=== PATIENT | male | born 1955 | race Caucasian/White ===

== ENCOUNTER 2018-12-14 16:33 | Inpatient (IN) | payer OTHER ==
[2018-12-14 18:29] LABS: #Eosinphils 0.1 thou/uL (0.0-0.7); #Lymphocytes 0.9 thou/uL (1.20-3.40); #Monocytes 0.3 thou/uL (0.11-0.59); %Basophils 0.6 % (0.0-1.0); %Eosinophils 3.4 % (0.0-10.0); %Lymphocytes 20.3 % (21.0-51.0); %Monocytes 7.7 % (0.0-10.0); Hemoglobin 11.9 g/dL (14.0-18.0); Mean Corpuscular HGB CONC 33.7 g/dL (32.0-36.0); Mean Corpuscular Hemoglobin 32.1 pg (27.0-31.0); Mean Corpuscular Volume 95.2 fL (78.0-98.0); Mean Platelet Volume 7.7 fL (7.4-10.4); Platelet Count 121 thou/uL (130-400); RBC Distribution Width 12.9 % (11.5-14.5); Red Blood Cell (RBC) Count 3.72 mill/uL (4.70-6.10); White Blood Cell (WBC) Count 4.4 thou/uL (4.8-10.8)
[2018-12-14 18:51] LABS: ALT (SGPT) 21 U/L (8-55); AST (SGOT) 25 U/L (5-34); Alkaline Phosphatase 63 U/L (40-150); Anion Gap 13 mmol/L (10-20); BUN (Urea Nitrogen) 17 mg/dL (8.4-25.7); Bilirubin, Total 0.7 mg/dL (0.2-1.2); Calc. Creatinine Clearance 0 mL/min (70-130); Calcium 9.3 mg/dL (7.8-10.44); Carbon Dioxide 25 mmol/L (23-31); Chloride 105 mmol/L (98-107); Estimated GFR-MDRD 67; Globulin 3.1 g/dL (2.4-3.5); Glucose 95 mg/dL (80-115); Potassium 3.8 mmol/L (3.5-5.1); Protein, Total 7.1 g/dL (5.8-8.1); Sodium 139 mmol/L (136-145)
[2018-12-14] MEDS ORDERED: Morphine 4 MG/ML VIAL ONE (20:27)
[2018-12-14] MEDS ORDERED: Clindamycin/D5W 900 mg/50 ml Premix Bag ONE (20:27)
[2018-12-14] MEDS ORDERED: Piperacillin/Tazobactam 4.5 GM VIAL ONE (20:27)
[2018-12-14] MEDS ORDERED: Bisacodyl 5 MG TAB PO PRN (20:29)
[2018-12-14] MEDS ORDERED: Acetaminophen 325 MG TAB PO PRN (20:29)
[2018-12-14] MEDS ORDERED: Senokot S 8.6-50 MG TAB PO PRN (20:29)
[2018-12-14] MEDS ORDERED: cefTRIAXone\\ROCEPHIN 1 GM in Sodium Chloride 0.9% 100 ML IVPB SCH (21:00)
[2018-12-14] MEDS ORDERED: Vancomycin HCl 1.5 GM in Sodium Chloride 0.9% 250 ML 300 ML IVPB ONE (21:15)
[2018-12-14] MEDS: Sodium Chloride 0.9% 1,000 ML IV SCH (21:34)
[2018-12-14] MEDS: cefTRIAXone\\ROCEPHIN 1 GM in Sodium Chloride 0.9% 100 ML IVPB SCH (23:09)
--- NOTE | 2018-12-15 02:29 | HP ---
CHIEF COMPLAINT: Right arm cellulitis. HISTORY OF PRESENT ILLNESS: The patient is a 63-year-old male with past medical history of hypertension, depression, also panic attacks, and has some history of frequent falls, has history of degeneration of his brain, who comes into the hospital after a fall. The patient's caregiver at the bedside, who is his ex- stated that the patient had a mechanical fall. On the , he came into the hospital, got x-ray of his right elbow, which indicated just information. He was put on 2 antibiotics and discharged to home. The patient's ex- also stated that he has right deltoid injury and was getting physical therapy prior to this fall. The patient is wheelchair bound and he is unable to walk due to frequent falls. According to her, he really does not have any diagnosis in terms of what is wrong with him neurologically. The patient denies any fevers or chills; however, the caregiver noticed that the patient's right arm started having more erythema and swelling, so she brought him to the hospital for further evaluation. PAST MEDICAL HISTORY: 1. Hypertension. 2. Depression. 3. Panic attacks. 4. 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 PAST SURGICAL HISTORY: He has had arm surgery in the past. FAMILY HISTORY: Mother, . Father, . He has only 1 brother, who is living out of 7 brothers and sisters. SOCIAL HISTORY: He denies any tobacco use. Denies any smoking, alcohol use, or drug use. He lives with his ex-, who is his catcher plug. He is currently a full code. REVIEW OF SYSTEMS: Unable to obtain. The patient is unable to express anything except for some pain to his right elbow. MEDICATIONS: This is on the list, the patient takes; 1. Aspirin 81 mg daily. 2. Zoloft 100 mg daily. 3. Valsartan 160 mg daily. 4. Valium 10 mg daily. 5. Hydrochlorothiazide 12.5 mg daily. ALLERGIES: THE PATIENT HAS NO KNOWN DRUG ALLERGIES. PHYSICAL EXAMINATION: VITAL SIGNS: As of the following; temperature of 98.1, respirations 16, saturation 97% on room air, blood pressure 132/78, and pulse of 81. GENERAL: He is awake, alert, and oriented x3. Does not appear in any distress. HEENT: Normocephalic and atraumatic. The patient has hard time expressing himself. He stutters and is unable to describe things very clearly. Pupils are equal and reactive to light. CV: S1 and S2 present. No murmurs, rubs, or gallops. LUNGS: Clear to auscultation. No rhonchi or wheezes noted. ABDOMEN: Soft, nontender. Bowel sounds are present x2. EXTREMITIES: He has no edema. Pedal pulses are present x2. NEUROVASCULAR: No focal deficits noted. The patient is unable to express himself. He gets very frustrated and he uses one word to describe things. The patient's caregiver at the bedside states that this is at his baseline. SKIN: He does have significant erythema to his right upper extremity all the way under the armpit. He has some mild seeping of clear fluid that is noted. Elbow also appears to have some erythema, but there is no pain upon palpation. As I mentioned, some erythema noted on his right arm. MUSCULOSKELETAL: The patient does not complain of any pain anywhere else. LABORATORY DATA: WBCs of 4.4, hemoglobin of 11.9, hematocrit of 35.4, platelets of 121. Chemistry; sodium of 139, potassium of 3.9, BUN of 17, creatinine of 1.11. IMAGING STUDIES: As I mentioned, the patient had an x-ray of the elbow on the , which indicated prominent soft tissue swelling without definite acute bony findings. ASSESSMENT AND PLAN: The patient is a very pleasant 63-year-old male, who comes to the hospital with complaints of right arm worsening pain and cellulitis. 1. Cellulitis. The patient failed outpatient therapy. We will put the patient on ceftriaxone and vancomycin. For now, I will get a Doppler of this right upper extremity to rule out any deep venous thrombosis. We will start the patient on some gentle hydration and continue to monitor. 2. Anxiety and depression. We will continue his home medications. 3. Deep venous thrombosis prophylaxis. We will put the patient on heparin subcu. Job ID: [id number]
[2018-12-15 05:50] LABS: #Eosinphils 0.1 thou/uL (0.0-0.7); #Lymphocytes 0.6 thou/uL (1.20-3.40); #Monocytes 0.3 thou/uL (0.11-0.59); #Neutrophils 2.4 thou/uL (1.40-6.50); %Basophils 0.5 % (0.0-1.0); %Eosinophils 3.6 % (0.0-10.0); %Monocytes 9.3 % (0.0-10.0); %Neutrophils 69.6 % (42.0-75.0); Hemoglobin 10.8 g/dL (14.0-18.0); Mean Corpuscular HGB CONC 33.3 g/dL (32.0-36.0); Mean Corpuscular Hemoglobin 31.7 pg (27.0-31.0); Mean Corpuscular Volume 95.2 fL (78.0-98.0); Mean Platelet Volume 7.3 fL (7.4-10.4); Platelet Count 103 thou/uL (130-400); RBC Distribution Width 12.8 % (11.5-14.5); Red Blood Cell (RBC) Count 3.42 mill/uL (4.70-6.10); White Blood Cell (WBC) Count 3.4 thou/uL (4.8-10.8)
[2018-12-15 06:01] LABS: Anion Gap 12 mmol/L (10-20); BUN (Urea Nitrogen) 16 mg/dL (8.4-25.7); Calc. Creatinine Clearance 117 mL/min (70-130); Calcium 8.8 mg/dL (7.8-10.44); Carbon Dioxide 24 mmol/L (23-31); Chloride 104 mmol/L (98-107); Estimated GFR-MDRD 80; Glucose 96 mg/dL (80-115); Potassium 3.4 mmol/L (3.5-5.1); Sodium 137 mmol/L (136-145)
[2018-12-15] MEDS ORDERED: Prevnar 13-Val Conj/PF 0.5 ML SYRINGE IM ONE (09:00)
--- NOTE | 2018-12-15 09:08 | ULT ---
ULTRASOUND DOPPLER DUPLEX VENOUS RIGHT UPPER EXTREMITY: DATE: 12/15/2018. TIME: 8:20 a.m. HISTORY: A 63-year-old male with right upper extremity swelling. TECHNIQUE: Chamorro scale, color flow, and spectral analysis, of major right upper extremity. Compression and relea se applied to all interrogated veins, except for the subclavian. FINDINGS: There is soft tissue edema in the arm. There is no thrombosis of the right internal jugular, subclav rusty, axillary, basilic, cephalic, brachial, radial, and ulnar veins. IMPRESSION: 1. No thrombosis of right upper extremity veins. 2. Soft tissue edema in the right arm. POS: [facility]
[2018-12-15] MEDS: Enoxaparin Sodium 40 MG/0.4 ML SYRINGE SC SCH (09:37)
[2018-12-15] MEDS: Vancomycin HCl 1.25 GM in Sodium Chloride 0.9% 250 ML 250 ML IVPB SCH ×2 (09:37→21:35)
[2018-12-15] MEDS: HYDROcodone/Acetaminophen 5/325 mg Tablet PO PRN ×2 (10:09→21:35)
[2018-12-15] MEDS ORDERED: Potassium Chloride 20 MEQ TAB PO SCH (10:15)
[2018-12-15] MEDS: Sodium Chloride 0.9% 1,000 ML IV SCH ×2 (11:12→21:35)
--- NOTE | 2018-12-15 17:13 | PDOC.PN ---
- Subjective Encounter Start Date: 12/15/18 Encounter Start Time: 10:30 Subjective: pt up in bed feels frustrated that he cannot express his concerns - Objective Resuscitation Status - Order Detail: 12/14/18 20:29 Resuscitation Status Routine Resuscitation Status: FULL: Full Resuscitation Vital Signs & Weight: Vital Signs (12 hours) Temp Pulse Resp BP Pulse Ox 12/15/18 16:00 98.3 F 77 12 107/56 L 12/15/18 11:00 97.5 F L 76 18 129/63 12/15/18 07:47 97.4 F L 92 20 133/71 96 Weight Weight 227 lb 1.218 oz I&O: 12/14/18 12/15/18 12/16/18 06:59 06:59 06:59 Intake Total 185 Output Total 100 360 Balance 85 -360 Result Diagrams: 12/15/18 05:21 12/15/18 05:21 Phys Exam - Physical Examination Neck: no nodes, no JVD, supple, full ROM Respiratory: no wheezing, no rales, no rhonchi, wheezing present, clear to auscultation bilateral Cardiovascular: RRR, no significant murmur, no rub, gallop, irregular right elbow erythema has improved Dx/Plan (1) Cellulitis of elbow Code(s): L03.119 - CELLULITIS OF UNSPECIFIED PART OF LIMB Status: Acute (2) Neurological disorder Code(s): G98.8 - OTHER DISORDERS OF NERVOUS SYSTEM Status: Acute (3) Hypokalemia Code(s): E87.6 - HYPOKALEMIA Status: Acute - Plan will replace K -: will continue abx for now -: right arm ultrasound negative for dvt * . Review of Systems - Review of Systems Other: unable to obtain - Medications/Allergies Allergies/Adverse Reactions: Allergies Allergy/AdvReac Type Severity Reaction Status Date / Time No Known Allergies Allergy Unverified 12/28/15 17:32 Medications: Current Medications Acetaminophen (Tylenol) 650 mg PO Q8H PRN PRN Reason: Headache/Fever/Mild Pain (1-3) Hydrocodone Bitart/Acetaminophen ([place] 5/325) 1 tab PO Q4H PRN PRN Reason: Moderate Pain (4-6) Last Admin: 12/15/18 10:09 Dose: 1 tab Aspirin (Aspirin Chewable) 81 mg PO DAILY [facility] Bisacodyl (Dulcolax) 10 mg PO DAILYPRN PRN PRN Reason: Constipation Diazepam (Valium) 10 mg PO QID PRN PRN Reason: Anxiety Enoxaparin Sodium (Lovenox) 40 mg SC 0900 [facility] Last Admin: 12/15/18 09:37 Dose: 40 mg Hydrochlorothiazide (Hydrochlorothiazide) 12.5 mg PO DAILY COUNT [facility]CLUDES THE [facility] Sodium Chloride (Normal Saline 0.9%) 1,000 mls @ 75 mls/hr IV .[id number] COUNT INCLUDES THE [facility] Last Admin: 12/15/18 11:12 Dose: 1,000 mls Vancomycin HCl 1.25 gm/ Sodium (Chloride) 250 mls @ 166.667 mls/hr IVPB Q12HR COUNT INCLUDES THE [facility] Last Admin: 12/15/18 09:37 Dose: 250 mls Ceftriaxone Sodium 1 gm/ (Sodium Chloride) 100 mls @ 200 mls/hr IVPB Q24HR@ 2300 [facility]CLUD[facility] Last Admin: 12/14/18 23:09 Dose: 100 mls Miscellaneous Medication (Pharmacy To Dose) 1 each IVPB PRN PRN PRN Reason: Pharmacy to dose Senna/Docusate Sodium (Senokot S) 2 tab PO BID PRN PRN Reason: Constipation Sertraline HCl (Zoloft) 150 mg PO DAILY [facility] Last Admin: 12/15/18 09:37 Dose: 150 mg Sodium Chloride (Flush - Normal Saline) 10 ml IVF Q12HR COUNT [facility]CLUDES THE [facility] Last Admin: 12/15/18 09:38 Dose: Not Given Sodium Chloride (Flush - Normal Saline) 10 ml IVF PRN PRN PRN Reason: Saline Flush Last Admin: 12/14/18 21:40 Dose: 10 ml Venlafaxine HCl (Effexor Xr) 75 mg PO DAILY [facility]
[2018-12-15] MEDS: cefTRIAXone\\ROCEPHIN 1 GM in Sodium Chloride 0.9% 100 ML IVPB SCH (23:27)
[2018-12-16] MEDS: Vancomycin HCl 1.25 GM in Sodium Chloride 0.9% 250 ML 250 ML IVPB SCH ×2 (08:56→21:20)
[2018-12-16] MEDS: Venlafaxine HCl XR 75 MG CAP PO SCH (09:00)
[2018-12-16] MEDS: Hydrochlorothiazide 25 MG TAB PO SCH (09:01)
[2018-12-16] MEDS: Aspirin Chewable 81 MG TAB PO SCH (09:01)
[2018-12-16] MEDS: Enoxaparin Sodium 40 MG/0.4 ML SYRINGE SC SCH (09:02)
[2018-12-16] MEDS: HYDROcodone/Acetaminophen 5/325 mg Tablet PO PRN ×3 (10:49→20:28)
--- NOTE | 2018-12-16 12:40 | PDOC.PN ---
- Subjective Encounter Start Date: 12/16/18 Encounter Start Time: 11:30 Subjective: says he feels better -: right UE still hurts not as much as before - Objective Resuscitation Status - Order Detail: 12/14/18 20:29 Resuscitation Status Routine Resuscitation Status: FULL: Full Resuscitation MAR Reviewed: Yes Vital Signs & Weight: Vital Signs (12 hours) Temp Pulse Resp BP Pulse Ox 12/16/18 12:23 98.1 F 67 20 124/58 L 95 12/16/18 08:24 98 F 81 28 H 127/59 L 98 12/16/18 04:37 98.0 F 80 16 122/65 97 Weight Weight 227 lb 1.218 oz I&O: 12/15/18 12/16/18 12/17/18 06:59 06:59 06:59 Intake Total 185 1277 Output Total 100 560 250 Balance 85 717 -250 Result Diagrams: 12/15/18 05:21 12/15/18 05:21 Phys Exam - Physical Examination HEENT: PERRLA, sclera anicteric Neck: no JVD, supple Respiratory: no wheezing, no rales Cardiovascular: RRR, no significant murmur Gastrointestinal: soft, non-tender, positive bowel sounds Musculoskeletal: pulses present right UE is edematous, erythema+, pulses + Neurological: non-focal, moves all 4 limbs Psychiatric: A&O x 3 Dx/Plan (1) Cellulitis of right upper extremity Code(s): L03.113 - CELLULITIS OF RIGHT UPPER LIMB Status: Acute (2) Depression Code(s): F32.9 - MAJOR DEPRESSIVE DISORDER, SINGLE EPISODE, UNSPECIFIED Status : Chronic Qualifiers: Depression Type: major depressive disorder Active/Remission status: in full remission (3) poor functional status Status: Chronic Comment: wheel chair bound from 1 year per ex. 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 - Plan is on vanc and ceftriaxone -: MRI UE to r/o muscle/tendon rupture or abscess -: Had prior cellulitis in 2016 in the same arm -: underlying deg neurological disease (no family h/o MS or Alix Gehrig's) -: One brother is recently diagnosed with Parkinson's * . Has not seen in a long time. Will get ID consult, ortho based on MRI results He apparently had Biceps tear 2 months back and was getting PT ( is his PCP). Review of Systems - Medications/Allergies Allergies/Adverse Reactions: Allergies Allergy/AdvReac Type Severity Reaction Status Date / Time No Known Allergies Allergy Unverified 12/28/15 17:32 Medications: Current Medications Acetaminophen (Tylenol) 650 mg PO Q8H PRN PRN Reason: Headache/Fever/Mild Pain (1-3) Hydrocodone Bitart/Acetaminophen ([place] 5/325) 1 tab PO Q4H PRN PRN Reason: Moderate Pain (4-6) Last Admin: 12/16/18 10:49 Dose: 1 tab Aspirin (Aspirin Chewable) 81 mg PO DAILY [facility] Last Admin: 12/16/18 09:01 Dose: 81 mg Bisacodyl (Dulcolax) 10 mg PO DAILYPRN PRN PRN Reason: Constipation Diazepam (Valium) 10 mg PO QID PRN PRN Reason: Anxiety Enoxaparin Sodium (Lovenox) 40 mg SC 0900 [facility] Last Admin: 12/16/18 09:02 Dose: 40 mg Hydrochlorothiazide (Hydrochlorothiazide) 12.5 mg PO DAILY [facility] Last Admin: 12/16/18 09:01 Dose: 12.5 mg Sodium Chloride (Normal Saline 0.9%) 1,000 mls @ 75 mls/hr IV .[id number] [facility] Last Admin: 12/15/18 21:35 Dose: 1,000 mls Vancomycin HCl 1.25 gm/ Sodium (Chloride) 250 mls @ 166.667 mls/hr IVPB Q12HR [facility] Last Admin: 12/16/18 08:56 Dose: 250 mls Ceftriaxone Sodium 1 gm/ (Sodium Chloride) 100 mls @ 200 mls/hr IVPB Q24HR@ 2300 [facility] Last Admin: 12/15/18 23:27 Dose: 100 mls Miscellaneous Medication (Pharmacy To Dose) 1 each IVPB PRN PRN PRN Reason: Pharmacy to dose Senna/Docusate Sodium (Senokot S) 2 tab PO BID PRN PRN Reason: Constipation Sertraline HCl (Zoloft) 150 mg PO DAILY [facility] Last Admin: 12/16/18 09:01 Dose: 150 mg Sodium Chloride (Flush - Normal Saline) 10 ml IVF Q12HR [facility] Last Admin: 12/15/18 21:35 Dose: 10 ml Sodium Chloride (Flush - Normal Saline) 10 ml IVF PRN PRN PRN Reason: Saline Flush Last Admin: 12/14/18 21:40 Dose: 10 ml Venlafaxine HCl (Effexor Xr) 75 mg PO DAILY [facility] Last Admin: 12/16/18 09:00 Dose: 75 mg
[2018-12-16] MEDS: Sodium Chloride 0.9% 1,000 ML IV SCH (13:18)
[2018-12-16 20:43] LABS: Vancomycin, Trough 15.9 ug/mL
--- NOTE | 2018-12-16 22:15 | CON ---
DATE OF CONSULTATION: 12/16/2018 REASON FOR CONSULTATION: Right arm inflammatory process. HISTORY OF PRESENT ILLNESS: A 63-year-old who has a history of hypertension, depression, panic attacks, polysubstance abuse and alcoholism in the past and some neurological disorder, chronic, who has frequent falls and had another mechanical fall and apparently hit his right elbow, had some x-rays taken, given antimicrobials and discharged home, and he was readmitted because of persistence of inflammatory changes, right upper extremity and initial findings included temperature 98.1, respirations 16, O2 saturation 97%, blood pressure 132/78, pulse 81. The extremities showed swelling of the right upper extremity. White cell count 4.4, hemoglobin 11.9, platelets 121,000, creatinine 1.1. The patient had an x-ray of the elbow, which showed soft tissue swelling. Currently, Mr. Higuera is awake. He has quite a bit of perseverance is in his speech, a lot of difficulty interviewing him because of that. He denied any headaches. No respiratory symptoms. No abdominal pain. Not much pain in the right upper extremity any longer. PAST MEDICAL HISTORY: Alcoholism, polysubstance use including intravenous. Hepatitis C, treated successfully reportedly. Recurrent falls. Neurological disorder, chronic, with mobility impairment, which left him wheelchair bound. FAMILY HISTORY: Noncontributory. SOCIAL HISTORY: Lives in [place] with his ex-, who is his dermatologist. Former smoker, used to drink heavily. CURRENT MEDS: Ceftriaxone, diazepam, enoxaparin, vancomycin, sertraline. PHYSICAL EXAMINATION: VITAL SIGNS: Temperature max 98.3, blood pressure 120/50, pulse 67, respirations 20, O2 saturation 95%. SKIN: Mild erythema, right upper extremity, centered around the right olecranon area. No lymphadenopathy. Numerous scars from prior damage in self excoriation in the upper extremities. The patient is voiding spontaneously in the urinal. HEENT: Ocular movements conjugate. Oral cavity with still few teeth in place with marked decay. Moist mucosa. NECK: Supple. LUNGS: Symmetric air entry. HEART: S1, S2. Regular rate. No S3 or S4. No wheezing. ABDOMEN: Soft, not distended or tender. No ascites. No bladder distention. EXTREMITIES: The patient has diffuse stiffness. He is able to move all 4 extremities. The right elbow has a boggy and swollen olecranon area. Pulses 1+ in dorsalis pedis. After informed consent, we proceeded to clean the area in the right olecranon region with Betadine and alcohol and performed an aspirate from the olecranon bursa. Less than 1 mL of serosanguineous fluid was obtained and submitted for cultures. Repeat white cell count 3.4, hemoglobin 10.8. Creatinine normal. ASSESSMENT: Fall with bursitis, right olecranon area, either traumatic or superimposed infection. PLAN: Await for the cultures. If negative, discontinue antimicrobial therapy. The patient had a duplex ultrasound of the extremity, which did not show any evidence of thrombosis. Job ID: [id number]
[2018-12-16] MEDS: cefTRIAXone\\ROCEPHIN 1 GM in Sodium Chloride 0.9% 100 ML IVPB SCH (23:16)
[2018-12-17] MEDS: Aspirin Chewable 81 MG TAB PO SCH (08:06)
[2018-12-17] MEDS: Hydrochlorothiazide 25 MG TAB PO SCH (08:06)
[2018-12-17] MEDS: HYDROcodone/Acetaminophen 5/325 mg Tablet PO PRN ×3 (08:07→17:12)
[2018-12-17] MEDS: Enoxaparin Sodium 40 MG/0.4 ML SYRINGE SC SCH (08:07)
--- NOTE | 2018-12-17 09:07 | OP ---
DATE OF PROCEDURE: 12/16/2018 PROCEDURE: Right olecranon bursa aspirate. DESCRIPTION OF PROCEDURE: After informed consent, the patient had the area of the olecranon bursa skin cleaned with Betadine and alcohol. Using a 21-gauge needle, less than 1 mL of serosanguineous fluid aspirated from the bursa. This was submitted for bacterial cultures. No complications noted from the procedure. Job ID: [id number]
[2018-12-17] MEDS: Vancomycin HCl 1.25 GM in Sodium Chloride 0.9% 250 ML 250 ML IVPB SCH ×2 (10:45→22:05)
[2018-12-17] MEDS: Venlafaxine HCl XR 75 MG CAP PO SCH (10:46)
--- NOTE | 2018-12-17 11:47 | MRI ---
MRI OF THE RIGHT UPPER EXTREMITY WITH AND WITHOUT CONTRAST: INDICATION: Concern for soft tissue infection or muscle and tendon tear. TECHNIQUE: Multiplanar, multisequence MR images were obtained of the right upper extremity with and without cont rast utilizing 20 cc of MultiHance. Comparisons are made with the right elbow radiograph dated 2018. FINDINGS: Motion artifact heavily degrades image detail. The biceps, brachial and triceps insertions are normal appearing. The common extensor and common fle xor origins are normal appearing. There is a peripherally enhancing fluid collection within the melita on of the olecranon bursa measuring 11.2 x 5.2 cm, suspicious for an infectious olecranon bursitis. There is extensive edema with enhancement within the subcutaneous tissues surrounding the right arm a nd right forearm as well as within the posterior elbow suspicious for cellulitis. No ricarda joint eff usion is evident. No bone marrow signal abnormality is evident to suggest the presence of osteomyeli tis. IMPRESSION: Findings suspicious for infectious olecranon bursitis with associated right upper extremity celluliti s. POS: [facility]
--- NOTE | 2018-12-17 12:00 | PDOC.PN ---
- Subjective Encounter Start Date: 12/17/18 Encounter Start Time: 11:00 Subjective: no new complaints -: at bedside - Objective Resuscitation Status - Order Detail: 12/14/18 20:29 Resuscitation Status Routine Resuscitation Status: FULL: Full Resuscitation MAR Reviewed: Yes Vital Signs & Weight: Vital Signs (12 hours) Temp Pulse Resp BP Pulse Ox 12/17/18 11:39 97.6 F 88 20 135/75 12/17/18 08:00 97.6 F 62 20 132/67 96 12/17/18 05:20 97.5 F L 81 16 137/73 96 12/17/18 00:25 98.0 F 65 16 130/64 96 Weight Weight 227 lb 1.218 oz I&O: 12/16/18 12/17/18 12/18/18 06:59 06:59 06:59 Intake Total 1277 Output Total 560 250 Balance 717 -250 Result Diagrams: 12/15/18 05:21 12/15/18 05:21 Phys Exam - Physical Examination HEENT: PERRLA, moist MMs Neck: no JVD, supple Respiratory: no wheezing, no rales Cardiovascular: RRR, no significant murmur Gastrointestinal: soft, no distention, positive bowel sounds right elbow and forearm edema and erythema++ Neurological: non-focal, moves all 4 limbs Dx/Plan (1) Cellulitis of right upper extremity Code(s): L03.113 - CELLULITIS OF RIGHT UPPER LIMB Status: Acute Comment: plus olecranon bursitis with sec infection (2) Depression Code(s): F32.9 - MAJOR DEPRESSIVE DISORDER, SINGLE EPISODE, UNSPECIFIED Status : Chronic Qualifiers: Depression Type: major depressive disorder Active/Remission status: in full remission (3) poor functional status Status: Chronic Comment: wheel chair bound from 1 year per ex. 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 - Plan d/w , will evaluate patient, MRI results noted -: has large fluid collection in bursa 11x5cm -: is on vanc and ceftriaxone -: cultures may not grow, was on antibiotics -: continue asp, hctz and venlafaxine * . Review of Systems - Medications/Allergies Allergies/Adverse Reactions: Allergies Allergy/AdvReac Type Severity Reaction Status Date / Time No Known Allergies Allergy Unverified 12/28/15 17:32 Medications: Current Medications Acetaminophen (Tylenol) 650 mg PO Q8H PRN PRN Reason: Headache/Fever/Mild Pain (1-3) Hydrocodone Bitart/Acetaminophen ([place] 5/325) 1 tab PO Q4H PRN PRN Reason: Moderate Pain (4-6) Last Admin: 12/17/18 08:07 Dose: 1 tab Aspirin (Aspirin Chewable) 81 mg PO DAILY [facility] Last Admin: 12/17/18 08:06 Dose: 81 mg Bisacodyl (Dulcolax) 10 mg PO DAILYPRN PRN PRN Reason: Constipation Diazepam (Valium) 10 mg PO QID PRN PRN Reason: Anxiety Enoxaparin Sodium (Lovenox) 40 mg SC 0900 [facility] Last Admin: 12/17/18 08:07 Dose: 40 mg Hydrochlorothiazide (Hydrochlorothiazide) 12.5 mg PO DAILY [facility] Last Admin: 12/17/18 08:06 Dose: 12.5 mg Vancomycin HCl 1.25 gm/ Sodium (Chloride) 250 mls @ 166.667 mls/hr IVPB Q12HR [facility] Last Admin: 12/17/18 10:45 Dose: 250 mls Ceftriaxone Sodium 1 gm/ (Sodium Chloride) 100 mls @ 200 mls/hr IVPB Q24HR@ 2300 [facility] Last Admin: 12/16/18 23:16 Dose: 100 mls Miscellaneous Medication (Pharmacy To Dose) 1 each IVPB PRN PRN PRN Reason: Pharmacy to dose Senna/Docusate Sodium (Senokot S) 2 tab PO BID PRN PRN Reason: Constipation Sertraline HCl (Zoloft) 150 mg PO DAILY [facility] Last Admin: 12/17/18 08:06 Dose: 150 mg Sodium Chloride (Flush - Normal Saline) 10 ml IVF Q12HR [facility] Last Admin: 12/17/18 08:08 Dose: 10 ml Sodium Chloride (Flush - Normal Saline) 10 ml IVF PRN PRN PRN Reason: Saline Flush Last Admin: 12/17/18 10:46 Dose: 10 ml Venlafaxine HCl (Effexor Xr) 75 mg PO DAILY [facility] Last Admin: 12/17/18 10:46 Dose: 75 mg
--- NOTE | 2018-12-17 21:58 | CON ---
DATE OF CONSULTATION: 12/17/2018 CHIEF COMPLAINT: Right olecranon bursitis. HISTORY OF PRESENT ILLNESS: Mr. Higuera is a 63-year-old male who presented to the hospital three days ago. He was found to have significant swelling and erythema of the right upper extremity. He had been on oral antibiotics prior to this, but worsened. He was admitted to the hospital for intravenous antibiotics for cellulitis of the arm and olecranon bursitis. Dr. Nguyen has seen the patient as well. I was consulted to evaluate for possible drainage of olecranon bursal fluid collection. He has had an aspirate of the fluid, which so far has not shown bacterial growth, however, he was on antibiotics prior to this. MRI has been done which showed a fluid collection of the posterior olecranon with some enhancement suggestive of infective process. PAST MEDICAL HISTORY: Alcoholism, hepatitis C, neurologic disorder, aphasia, and he is wheelchair bound. SOCIAL HISTORY: The patient denies active tobacco or alcohol use. FAMILY MEDICAL HISTORY: Unobtainable. REVIEW OF SYSTEMS: The patient points to right elbow for pain. Detailed review of systems is unable to be obtained because of communication issues. IMAGING: MRI of the right elbow reveals an 11 x 5 cm fluid collection along the posterior aspect of the elbow at the olecranon bursa. There is enhancement suggestive of infective bursitis. PHYSICAL EXAMINATION: VITAL SIGNS: Temperature is 97.6, pulse is 88, respiratory rate 20, blood pressure is 135/75. GENERAL: He is alert, lying supine, in no apparent distress. RESPIRATORY: Breathing comfortably. ABDOMEN: Soft, nontender, nondistended. MUSCULOSKELETAL: The patient's right upper extremity has faint erythema. There is edema and swelling about the elbow. There is increased erythema over the posterior elbow at the olecranon bursa. There is fluctuance to palpation and swelling with obvious fluid accumulation. There is no purulent drainage. No open wounds. There is a small eschar, which is healing appropriately. He is able to flex and extend the elbow without significant difficulty or pain. He has pain to palpation of the elbow. IMPRESSION: Right olecranon bursitis with overlying cellulitis, possible deep infection. PLAN: At this point, I will make the patient n.p.o. at midnight. He may need surgical intervention tomorrow. If he is not clearly improving, I will plan for an irrigation and debridement of the posterior olecranon bursa. He does not have a septic elbow, but could likely benefit from removal of his fluid accumulation in case he does have infection at this level. If he continues to improve, we can hold off on this. I discussed this with him. Hopefully, he understands it is difficult to communicate with this patient. Continue intravenous antibiotics for now. Job ID: [id number]
[2018-12-17] MEDS: cefTRIAXone\\ROCEPHIN 1 GM in Sodium Chloride 0.9% 100 ML IVPB SCH (23:36)
[2018-12-18] MEDS: HYDROcodone/Acetaminophen 5/325 mg Tablet PO PRN ×4 (04:15→18:24)
[2018-12-18] MEDS: Hydrochlorothiazide 25 MG TAB PO SCH (09:09)
[2018-12-18] MEDS: Enoxaparin Sodium 40 MG/0.4 ML SYRINGE SC SCH (09:09)
[2018-12-18] MEDS: Aspirin Chewable 81 MG TAB PO SCH (09:09)
[2018-12-18] MEDS: Venlafaxine HCl XR 75 MG CAP PO SCH (09:10)
[2018-12-18] MEDS: Vancomycin HCl 1.25 GM in Sodium Chloride 0.9% 250 ML 250 ML IVPB SCH ×2 (09:10→21:30)
--- NOTE | 2018-12-18 09:22 | PRG ---
DATE OF SERVICE: 12/18/2018 SUBJECTIVE: The patient is doing well. He reports that his elbow feels better. Less pain. No fevers or chills overnight. No events overnight. OBJECTIVE: VITAL SIGNS: Temperature 98.4. The patient has been afebrile. Pulse is 79, respiratory rate 18, 97% on room air, 131/68 blood pressure. GENERAL: He is alert, sitting upright, no apparent distress. Breathing comfortably. EXTREMITIES: Right upper extremity has decreased erythema. He has better range of motion. Minimally tender to palpation of the posterior elbow. Decreased swelling. There is still enlargement of the olecranon bursa with fluid. IMPRESSION: Olecranon bursitis with overlying cellulitis. PLAN: At this point, the patient seems to continue to improve with intravenous antibiotics. He has minimal erythema at this point. He has near full range of motion. It does not seem that he is going to need surgical intervention. I will change his diet to regular. We will continue to follow, but no plans for surgical intervention at this time. Aspirate from elbow fluid continues to be negative for growth. Job ID: [id number]
--- NOTE | 2018-12-18 10:47 | PDOC.PN ---
- Subjective Encounter Start Date: 12/18/18 Encounter Start Time: 10:15 Subjective: no new complaints -: right elbow and forearm is better -: ex- at bedside - Objective Resuscitation Status - Order Detail: 12/14/18 20:29 Resuscitation Status Routine Resuscitation Status: FULL: Full Resuscitation MAR Reviewed: Yes Vital Signs & Weight: Vital Signs (12 hours) Temp Pulse Resp BP Pulse Ox 12/18/18 03:50 98.4 F 79 18 131/68 97 12/17/18 23:40 97.9 F 64 18 133/67 96 Weight Weight 227 lb 1.218 oz I&O: 12/17/18 12/18/18 12/19/18 06:59 06:59 06:59 Output Total 250 Balance -250 Result Diagrams: 12/15/18 05:21 12/15/18 05:21 Phys Exam - Physical Examination HEENT: PERRLA, moist MMs Neck: no JVD, supple Respiratory: no wheezing, no rales Cardiovascular: RRR, no significant murmur Gastrointestinal: soft, no distention, positive bowel sounds Musculoskeletal: pulses present right elbow edema and erythema, rest of the forearm/hand its receding Neurological: non-focal, moves all 4 limbs Psychiatric: A&O x 3 Dx/Plan (1) Cellulitis of right upper extremity Code(s): L03.113 - CELLULITIS OF RIGHT UPPER LIMB Status: Acute Comment: plus olecranon bursitis with sec infection (2) Depression Code(s): F32.9 - MAJOR DEPRESSIVE DISORDER, SINGLE EPISODE, UNSPECIFIED Status : Chronic Qualifiers: Depression Type: major depressive disorder Active/Remission status: in full remission (3) poor functional status Status: Chronic Comment: wheel chair bound from 1 year per ex. 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 - Plan is on vanc and ceftriaxone -: cultures are growing rare bacteria, gm stain is -ve -: no surgical intervention for now -: home meds as before -: to mobilize as tolerated, dc plan per adv * . Review of Systems - Medications/Allergies Allergies/Adverse Reactions: Allergies Allergy/AdvReac Type Severity Reaction Status Date / Time No Known Allergies Allergy Unverified 12/28/15 17:32 Medications: Current Medications Acetaminophen (Tylenol) 650 mg PO Q8H PRN PRN Reason: Headache/Fever/Mild Pain (1-3) Hydrocodone Bitart/Acetaminophen ([place] 5/325) 1 tab PO Q4H PRN PRN Reason: Moderate Pain (4-6) Last Admin: 12/18/18 09:19 Dose: 1 tab Aspirin (Aspirin Chewable) 81 mg PO DAILY [facility] Last Admin: 12/18/18 09:09 Dose: 81 mg Bisacodyl (Dulcolax) 10 mg PO DAILYPRN PRN PRN Reason: Constipation Diazepam (Valium) 10 mg PO QID PRN PRN Reason: Anxiety Enoxaparin Sodium (Lovenox) 40 mg SC 0900 [facility] Last Admin: 12/18/18 09:09 Dose: 40 mg Hydrochlorothiazide (Hydrochlorothiazide) 12.5 mg PO DAILY [facility] Last Admin: 12/18/18 09:09 Dose: 12.5 mg Vancomycin HCl 1.25 gm/ Sodium (Chloride) 250 mls @ 166.667 mls/hr IVPB Q12HR [facility] Last Admin: 12/18/18 09:10 Dose: 250 mls Ceftriaxone Sodium 1 gm/ (Sodium Chloride) 100 mls @ 200 mls/hr IVPB Q24HR@ 2300 [facility] Last Admin: 12/17/18 23:36 Dose: 100 mls Miscellaneous Medication (Pharmacy To Dose) 1 each IVPB PRN PRN PRN Reason: Pharmacy to dose Senna/Docusate Sodium (Senokot S) 2 tab PO BID PRN PRN Reason: Constipation Sertraline HCl (Zoloft) 150 mg PO DAILY [facility] Last Admin: 12/18/18 09:10 Dose: 150 mg Sodium Chloride (Flush - Normal Saline) 10 ml IVF Q12HR [facility] Last Admin: 12/18/18 09:10 Dose: 10 ml Sodium Chloride (Flush - Normal Saline) 10 ml IVF PRN PRN PRN Reason: Saline Flush Last Admin: 12/17/18 10:46 Dose: 10 ml Venlafaxine HCl (Effexor Xr) 75 mg PO DAILY [facility] Last Admin: 12/18/18 09:10 Dose: 75 mg
[2018-12-18 20:52] LABS: Vancomycin, Trough 18.9 ug/mL
[2018-12-18] MEDS: Simvastatin 5 MG TAB PO SCH (21:46)
[2018-12-18] MEDS: cefTRIAXone\\ROCEPHIN 1 GM in Sodium Chloride 0.9% 100 ML IVPB SCH (23:55)
[2018-12-19] MEDS: Stress 600 With Zinc 1 TAB PO SCH (09:12)
[2018-12-19] MEDS: Hydrochlorothiazide 25 MG TAB PO SCH (09:13)
[2018-12-19] MEDS: Venlafaxine HCl XR 75 MG CAP PO SCH (09:13)
[2018-12-19] MEDS: Enoxaparin Sodium 40 MG/0.4 ML SYRINGE SC SCH (09:24)
[2018-12-19] MEDS: Aspirin Chewable 81 MG TAB PO SCH (09:25)
[2018-12-19] MEDS: Tamsulosin HCl 0.4 MG CAP PO SCH (09:25)
[2018-12-19] MEDS: Folic Acid 1 MG TAB PO SCH (09:25)
[2018-12-19] MEDS: Vancomycin HCl 1.25 GM in Sodium Chloride 0.9% 250 ML 250 ML IVPB SCH ×2 (09:26→20:09)
--- NOTE | 2018-12-19 10:47 | PDOC.PN ---
- Subjective Encounter Start Date: 12/19/18 Encounter Start Time: 09:20 Subjective: awake, feels better -: is seen moving his right UE well - Objective Resuscitation Status - Order Detail: 12/14/18 20:29 Resuscitation Status Routine Resuscitation Status: FULL: Full Resuscitation MAR Reviewed: Yes Vital Signs & Weight: Vital Signs (12 hours) Temp Pulse Resp BP Pulse Ox 12/19/18 07:31 98.3 F 71 20 137/69 98 12/19/18 05:15 97.7 F 83 21 H 139/77 99 12/18/18 23:00 97 Weight Weight 227 lb 1.218 oz I&O: 12/18/18 12/19/18 12/20/18 06:59 06:59 06:59 Intake Total 620 Output Total 1950 Balance -1330 Result Diagrams: 12/15/18 05:21 12/15/18 05:21 Phys Exam - Physical Examination HEENT: PERRLA, moist MMs Neck: no JVD, supple Respiratory: no wheezing, no rales Cardiovascular: RRR, no significant murmur Gastrointestinal: soft, non-tender, positive bowel sounds Musculoskeletal: pulses present right elbow and forearm edema and erythema is receding well Neurological: non-focal, moves all 4 limbs Dx/Plan (1) Cellulitis of right upper extremity Code(s): L03.113 - CELLULITIS OF RIGHT UPPER LIMB Status: Acute Comment: plus olecranon bursitis with sec infection (2) Depression Code(s): F32.9 - MAJOR DEPRESSIVE DISORDER, SINGLE EPISODE, UNSPECIFIED Status : Chronic Qualifiers: Depression Type: major depressive disorder Active/Remission status: in full remission (3) poor functional status Status: Chronic Comment: wheel chair bound from 1 year per ex. 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 - Plan is on vanc and ceftriaxone -: continue asp, zocor, hctz and flomax -: venlafaxine and zoloft at home dose -: hemostable -: dc antibiotics per adv * . Review of Systems - Medications/Allergies Allergies/Adverse Reactions: Allergies Allergy/AdvReac Type Severity Reaction Status Date / Time No Known Allergies Allergy Unverified 12/28/15 17:32 Medications: Current Medications Acetaminophen (Tylenol) 650 mg PO Q8H PRN PRN Reason: Headache/Fever/Mild Pain (1-3) Hydrocodone Bitart/Acetaminophen ([place] 5/325) 1 tab PO Q4H PRN PRN Reason: Moderate Pain (4-6) Last Admin: 12/18/18 18:24 Dose: 1 tab Aspirin (Aspirin Chewable) 81 mg PO DAILY [facility] Last Admin: 12/19/18 09:25 Dose: 81 mg Bisacodyl (Dulcolax) 10 mg PO DAILYPRN PRN PRN Reason: Constipation Diazepam (Valium) 10 mg PO QID PRN PRN Reason: Anxiety Enoxaparin Sodium (Lovenox) 40 mg SC 0900 [facility] Last Admin: 12/19/18 09:24 Dose: 40 mg Folic Acid (Folvite) 2 mg PO DAILY [facility] Last Admin: 12/19/18 09:25 Dose: 2 mg Hydrochlorothiazide (Hydrochlorothiazide) 12.5 mg PO DAILY [facility] Last Admin: 12/19/18 09:13 Dose: 12.5 mg Vancomycin HCl 1.25 gm/ Sodium (Chloride) 250 mls @ 166.667 mls/hr IVPB Q12HR [facility] Last Admin: 12/19/18 09:26 Dose: 250 mls Ceftriaxone Sodium 1 gm/ (Sodium Chloride) 100 mls @ 200 mls/hr IVPB Q24HR@ 2300 [facility] Last Admin: 12/18/18 23:55 Dose: 100 mls Miscellaneous Medication (Pharmacy To Dose) 1 each IVPB PRN PRN PRN Reason: Pharmacy to dose Multivitamins/Zinc (Stress 600 With Zinc) 1 tab PO DAILY [facility] Last Admin: 12/19/18 09:12 Dose: 1 tab Senna/Docusate Sodium (Senokot S) 2 tab PO BID PRN PRN Reason: Constipation Sertraline HCl (Zoloft) 150 mg PO DAILY [facility] Last Admin: 12/19/18 09:25 Dose: 150 mg Simvastatin (Zocor) 10 mg PO HS [facility] Last Admin: 12/18/18 21:46 Dose: 10 mg Sodium Chloride (Flush - Normal Saline) 10 ml IVF Q12HR [facility] Last Admin: 12/19/18 09:27 Dose: 10 ml Sodium Chloride (Flush - Normal Saline) 10 ml IVF PRN PRN PRN Reason: Saline Flush Last Admin: 12/17/18 10:46 Dose: 10 ml Tamsulosin HCl (Flomax) 0.4 mg PO DAILY [facility] Last Admin: 12/19/18 09:25 Dose: 0.4 mg Venlafaxine HCl (Effexor Xr) 75 mg PO DAILY [facility] Last Admin: 12/19/18 09:13 Dose: 75 mg
[2018-12-19] MEDS: HYDROcodone/Acetaminophen 5/325 mg Tablet PO PRN ×2 (11:52→16:57)
[2018-12-19] MEDS: Simvastatin 5 MG TAB PO SCH (20:09)
[2018-12-19] MEDS: cefTRIAXone\\ROCEPHIN 1 GM in Sodium Chloride 0.9% 100 ML IVPB SCH (22:36)
[2018-12-20] MEDS: Stress 600 With Zinc 1 TAB PO SCH (08:37)
[2018-12-20] MEDS: Aspirin Chewable 81 MG TAB PO SCH (08:38)
[2018-12-20] MEDS: Hydrochlorothiazide 25 MG TAB PO SCH (08:39)
[2018-12-20] MEDS: Tamsulosin HCl 0.4 MG CAP PO SCH (08:39)
[2018-12-20] MEDS: Enoxaparin Sodium 40 MG/0.4 ML SYRINGE SC SCH (08:40)
[2018-12-20] MEDS: Venlafaxine HCl XR 75 MG CAP PO SCH (08:40)
[2018-12-20] MEDS: Folic Acid 1 MG TAB PO SCH (08:40)
[2018-12-20] MEDS: Vancomycin HCl 1.25 GM in Sodium Chloride 0.9% 250 ML 250 ML IVPB SCH ×2 (09:34→20:26)
[2018-12-20] MEDS: HYDROcodone/Acetaminophen 5/325 mg Tablet PO PRN ×3 (09:34→22:50)
--- NOTE | 2018-12-20 11:40 | PDOC.PN ---
- Subjective Encounter Start Date: 12/20/18 Encounter Start Time: 10:25 Subjective: feels better -: no sob - Objective Resuscitation Status - Order Detail: 12/14/18 20:29 Resuscitation Status Routine Resuscitation Status: FULL: Full Resuscitation MAR Reviewed: Yes Vital Signs & Weight: Vital Signs (12 hours) Temp Pulse Resp BP Pulse Ox 12/20/18 11:09 97.6 F 70 18 111/68 94 L 12/20/18 07:37 97.9 F 85 16 133/78 97 12/20/18 04:00 97.7 F 63 18 131/71 96 Weight Weight 227 lb 1.218 oz I&O: 12/19/18 12/20/18 12/21/18 06:59 06:59 06:59 Intake Total 620 1820 240 Output Total 1950 Balance -1330 1820 240 Result Diagrams: 12/15/18 05:21 12/15/18 05:21 Phys Exam - Physical Examination HEENT: PERRLA, moist MMs Neck: no JVD, supple Respiratory: no wheezing, no rales Cardiovascular: RRR, no significant murmur Gastrointestinal: soft, non-tender, positive bowel sounds Musculoskeletal: pulses present right elbow and forearm edema and erythema is receding Neurological: non-focal, moves all 4 limbs Psychiatric: A&O x 3 Dx/Plan (1) Cellulitis of right upper extremity Code(s): L03.113 - CELLULITIS OF RIGHT UPPER LIMB Status: Acute Comment: plus olecranon bursitis with sec infection (2) Depression Code(s): F32.9 - MAJOR DEPRESSIVE DISORDER, SINGLE EPISODE, UNSPECIFIED Status : Chronic Qualifiers: Depression Type: major depressive disorder Active/Remission status: in full remission (3) poor functional status Status: Chronic Comment: wheel chair bound from 1 year per ex. 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 - Plan is on vanc and ceftriaxone -: dc plan in am on oral antibiotics per Dr.Lemos gaytan -: right forearm and hand edema is mostly receded, still has erythema -: over olecranon area. -: continue asp, zocor, zoloft, venlafaxine and hctz * . Review of Systems - Medications/Allergies Allergies/Adverse Reactions: Allergies Allergy/AdvReac Type Severity Reaction Status Date / Time No Known Allergies Allergy Unverified 12/28/15 17:32 Medications: Current Medications Acetaminophen (Tylenol) 650 mg PO Q8H PRN PRN Reason: Headache/Fever/Mild Pain (1-3) Hydrocodone Bitart/Acetaminophen ([place] 5/325) 1 tab PO Q4H PRN PRN Reason: Moderate Pain (4-6) Last Admin: 12/20/18 09:34 Dose: 1 tab Aspirin (Aspirin Chewable) 81 mg PO DAILY [facility] Last Admin: 12/20/18 08:38 Dose: 81 mg Bisacodyl (Dulcolax) 10 mg PO DAILYPRN PRN PRN Reason: Constipation Diazepam (Valium) 10 mg PO QID PRN PRN Reason: Anxiety Enoxaparin Sodium (Lovenox) 40 mg SC 0900 [facility] Last Admin: 12/20/18 08:40 Dose: 40 mg Folic Acid (Folvite) 2 mg PO DAILY [facility] Last Admin: 12/20/18 08:40 Dose: 2 mg Hydrochlorothiazide (Hydrochlorothiazide) 12.5 mg PO DAILY [facility] Last Admin: 12/20/18 08:39 Dose: 12.5 mg Vancomycin HCl 1.25 gm/ Sodium (Chloride) 250 mls @ 166.667 mls/hr IVPB Q12HR [facility] Last Admin: 12/20/18 09:34 Dose: 250 mls Ceftriaxone Sodium 1 gm/ (Sodium Chloride) 100 mls @ 200 mls/hr IVPB Q24HR@ 2300 [facility] Last Admin: 12/19/18 22:36 Dose: 100 mls Miscellaneous Medication (Pharmacy To Dose) 1 each IVPB PRN PRN PRN Reason: Pharmacy to dose Multivitamins/Zinc (Stress 600 With Zinc) 1 tab PO DAILY [facility] Last Admin: 12/20/18 08:37 Dose: 1 tab Senna/Docusate Sodium (Senokot S) 2 tab PO BID PRN PRN Reason: Constipation Sertraline HCl (Zoloft) 150 mg PO DAILY [facility] Last Admin: 12/20/18 08:38 Dose: 150 mg Simvastatin (Zocor) 10 mg PO HS [facility] Last Admin: 12/19/18 20:09 Dose: 10 mg Sodium Chloride (Flush - Normal Saline) 10 ml IVF Q12HR [facility] Last Admin: 12/20/18 08:40 Dose: 10 ml Sodium Chloride (Flush - Normal Saline) 10 ml IVF PRN PRN PRN Reason: Saline Flush Last Admin: 12/17/18 10:46 Dose: 10 ml Tamsulosin HCl (Flomax) 0.4 mg PO DAILY [facility] Last Admin: 12/20/18 08:39 Dose: 0.4 mg Venlafaxine HCl (Effexor Xr) 75 mg PO DAILY [facility] Last Admin: 12/20/18 08:40 Dose: 75 mg
[2018-12-20] MEDS: Simvastatin 5 MG TAB PO SCH (21:21)
[2018-12-20] MEDS: cefTRIAXone\\ROCEPHIN 1 GM in Sodium Chloride 0.9% 100 ML IVPB SCH (22:45)
[2018-12-21] MEDS: HYDROcodone/Acetaminophen 5/325 mg Tablet PO PRN ×2 (03:50→08:41)
[2018-12-21 07:58] VITALS: BP 137/81; TEMP 97.6
[2018-12-21] MEDS: Venlafaxine HCl XR 75 MG CAP PO SCH (08:40)
[2018-12-21] MEDS: Tamsulosin HCl 0.4 MG CAP PO SCH (08:40)
[2018-12-21] MEDS: Folic Acid 1 MG TAB PO SCH (08:41)
[2018-12-21] MEDS: Hydrochlorothiazide 25 MG TAB PO SCH (08:41)
[2018-12-21] MEDS: Aspirin Chewable 81 MG TAB PO SCH (08:42)
[2018-12-21] MEDS: Enoxaparin Sodium 40 MG/0.4 ML SYRINGE SC SCH (08:42)
[2018-12-21 08:47] LABS: #Eosinphils 0.1 thou/uL (0.0-0.7); #Lymphocytes 0.6 thou/uL (1.20-3.40); #Monocytes 0.5 thou/uL (0.11-0.59); #Neutrophils 2.3 thou/uL (1.40-6.50); %Basophils 0.1 % (0.0-1.0); %Eosinophils 3.3 % (0.0-10.0); %Lymphocytes 17.5 % (21.0-51.0); %Monocytes 13.9 % (0.0-10.0); %Neutrophils 65.2 % (42.0-75.0); Hemoglobin 13.3 g/dL (14.0-18.0); Mean Corpuscular HGB CONC 32.7 g/dL (32.0-36.0); Mean Corpuscular Hemoglobin 30.4 pg (27.0-31.0); Mean Corpuscular Volume 92.9 fL (78.0-98.0); Platelet Count 152 thou/uL (130-400); RBC Distribution Width 12.6 % (11.5-14.5); Red Blood Cell (RBC) Count 4.39 mill/uL (4.70-6.10); White Blood Cell (WBC) Count 3.6 thou/uL (4.8-10.8)
[2018-12-21 09:05] LABS: Anion Gap 17 mmol/L (10-20); BUN (Urea Nitrogen) 18 mg/dL (8.4-25.7); Calc. Creatinine Clearance 123 mL/min (70-130); Calcium 10.1 mg/dL (7.8-10.44); Carbon Dioxide 26 mmol/L (23-31); Chloride 102 mmol/L (98-107); Estimated GFR-MDRD 84; Glucose 100 mg/dL (80-115); Potassium 4.4 mmol/L (3.5-5.1); Sodium 141 mmol/L (136-145)
[2018-12-21] MEDS: Vancomycin HCl 1.25 GM in Sodium Chloride 0.9% 250 ML 250 ML IVPB SCH (10:31)
[2018-12-21] MEDS: Stress 600 With Zinc 1 TAB PO SCH (10:32)
--- NOTE | 2018-12-21 11:15 | PDOC.PN ---
- Subjective Encounter Start Date: 12/21/18 Encounter Start Time: 09:00 Subjective: No complaint expressed - Objective Resuscitation Status - Order Detail: 12/14/18 20:29 Resuscitation Status Routine Resuscitation Status: FULL: Full Resuscitation Vital Signs & Weight: Vital Signs (12 hours) Temp Pulse Resp BP Pulse Ox 12/21/18 08:00 94 L 12/21/18 07:57 97.6 F 87 16 137/81 94 L Weight Weight 227 lb 1.218 oz I&O: 12/20/18 12/21/18 12/22/18 06:59 06:59 06:59 Intake Total 1820 2200 Output Total 0 Balance 1820 2200 Result Diagrams: 12/21/18 08:16 12/21/18 08:16 Phys Exam - Physical Examination Neck: no JVD Respiratory: clear to auscultation bilateral Cardiovascular: RRR Gastrointestinal: soft Musculoskeletal: no edema (Right elbpw cellulitis has improved.) Neurological: moves all 4 limbs Dx/Plan - Plan -: Stable. -: Home today. * .
[2018-12-21] MEDS ORDERED: Betamethasone 0.1% Cream 15 GM TUBE TOP PRN (11:45)
--- NOTE | 2018-12-21 12:44 | DIS ---
DATE OF ADMISSION: 12/14/2018 DATE OF DISCHARGE: 12/21/2018 ADMITTING DIAGNOSIS: 1. Left elbow cellulitis. 2. Depression and anxiety disorder. 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 Nguyen. PROCEDURES: Upper extremity MRI, right olecranon bursa aspiration, ultrasound of the left arm in cellulitis area. HOSPITAL COURSE: Course of hospitalization, uncomplicated. Responding well to management. The patient is clinically stable at this time, being discharged home. For discharge medications, please see discharge medication reconciliation sheet. The patient is to follow up with Dr. Nguyen and also with his primary care physician. Discharge time, 32 minutes. For today's physical examination, please see the patient's medical record progress note section. Job ID: [id number]
[2018-12-22] MEDS ORDERED: Naproxen 500 MG TAB PO SCH (09:00)
== END 2018-12-21 13:00 | disposition home or self-care (01) | DRG 558 ==
LOC: ERS 16:33 → ERHOLD 20:20 → 3SE 12-15 02:40 → T4-A 12-18 22:35
PROVIDERS: ADMIT Internal Medicine; ATTEND Internal Medicine
PROC: 0M933ZX Drainage of Right Elbow Bursa and Ligament, Percutaneous Approach, Diagnostic (ICD-10-PCS; principal; 2018-12-16)
DX: M70.21 Olecranon bursitis, right elbow (principal); L03.114 Cellulitis of left upper limb; F32.9 Major depressive disorder, single episode, unspecified; F41.9 Anxiety disorder, unspecified; E87.6 Hypokalemia; Z87.891 Personal history of nicotine dependence; F10.10 Alcohol abuse, uncomplicated; Z91.81 History of falling; Z99.3 Dependence on wheelchair; Z79.899 Other long term (current) drug therapy; Z79.82 Long term (current) use of aspirin; G31.9 Degenerative disease of nervous system, unspecified
CPT/HCPCS: 36415; 80048; 80053; 80202; 85025; 87040; 87070; 87205; 90471; 90670; 90686; 94760; 96365; 96367; 96375; G0008; G0009; J0696; J1650; J2270; J2543; J3370; J3490; J7050

== ENCOUNTER 2019-02-01 13:02 | Emergency (ER) | payer OTHER ==
[2019-02-01 14:02] LABS: #Basophils 0.1 thou/uL (0.0-0.2); #Eosinphils 0.1 thou/uL (0.0-0.7); #Lymphocytes 0.8 thou/uL (1.20-3.40); #Monocytes 0.4 thou/uL (0.11-0.59); #Neutrophils 4.1 thou/uL (1.40-6.50); %Basophils 0.9 % (0.0-1.0); %Eosinophils 1.4 % (0.0-10.0); %Monocytes 7.7 % (0.0-10.0); %Neutrophils 75.9 % (42.0-75.0); Hemoglobin 12.3 g/dL (14.0-18.0); Mean Corpuscular HGB CONC 33.4 g/dL (32.0-36.0); Mean Corpuscular Volume 92.8 fL (78.0-98.0); Platelet Count 176 thou/uL (130-400); RBC Distribution Width 13.3 % (11.5-14.5); Red Blood Cell (RBC) Count 3.95 mill/uL (4.70-6.10); White Blood Cell (WBC) Count 5.3 thou/uL (4.8-10.8)
[2019-02-01 14:23] LABS: ALT (SGPT) 19 U/L (8-55); AST (SGOT) 35 U/L (5-34); Acetaminophen Less than 6.0 mcg/mL (10.0-30.0); Albumin 3.5 g/dL (3.4-4.8); Alcohol Less than 10 mg/dL (Less than 10); Alkaline Phosphatase 91 U/L (40-150); Anion Gap 11 mmol/L (10-20); BUN (Urea Nitrogen) 7 mg/dL (8.4-25.7); Bilirubin, Total 0.6 mg/dL (0.2-1.2); Calc. Creatinine Clearance 0 mL/min (70-130); Calcium 9.3 mg/dL (7.8-10.44); Carbon Dioxide 27 mmol/L (23-31); Chloride 104 mmol/L (98-107); Estimated GFR-MDRD Greater than 90; Globulin 3.2 g/dL (2.4-3.5); Glucose 98 mg/dL (80-115); Potassium 4.4 mmol/L (3.5-5.1); Protein, Total 6.7 g/dL (5.8-8.1); Salicylate Less than 8.0 mg/dL (15.0-30.0); Sodium 138 mmol/L (136-145)
[2019-02-01 14:58] LABS: Bilirubin Negative (Negative); Blood, Urine Negative (Negative); Clarity CLEAR (Clear); Glucose, Urine (Dipstick) Negative (Negative); Leukocyte Negative (Negative); Nitrite Negative (Negative); Protein, Urine (Dipstick) Negative (Neg-Trace); Specific Gravity, Urine 1.014 (1.002-1.036); Urobilinogen 0.2 mg/dL (0.2-1.0)
[2019-02-01 15:08] LABS: Medtox Reader # READER 1
[2019-02-01 15:09] LABS: Amphetamine Not Detected (NotDetected); Barbiturates Screen Not Detected (NotDetected); Benzodiazepine Screen Detected (NotDetected); Cocaine Metabolite Screen Not Detected (NotDetected); Medtox Control Line Valid? VALID (VALID); Methadone Not Detected (NotDetected); Methamphetamine Not Detected (NotDetected); Opiate Screen Not Detected (NotDetected); Oxycodone Screen Not Detected (NotDetected); Phencyclidine (PCP) Not Detected (NotDetected); THC/Cannabinoid Screen Not Detected (NotDetected); Tricyclic Screen Not Detected (NotDetected)
[2019-02-01] MEDS ORDERED: Acetaminophen 500 MG TAB ONE (19:06)
== END 2019-02-01 19:34 ==
LOC: ERS 13:02
DX: F32.9 Major depressive disorder, single episode, unspecified (principal); E78.5 Hyperlipidemia, unspecified; I10 Essential (primary) hypertension; N40.0 Benign prostatic hyperplasia without lower urinary tract symptoms
CPT/HCPCS: 36415; 80053; 80306; 80307; 81003; 84443; 85025; 94760